=== PATIENT | male | born 1940 | race Caucasian/White ===

== ENCOUNTER 2016-05-30 05:50 | Inpatient (IN) | payer MEDICARE ==
[~2016-05-30] VITALS: Ht 177.8 cm; Wt 102.1 kg
[~2016-05-30 05:50] MED LIST: ALBU90AE INH; ASPI-621 PO; ATOR40TA78 PO; DONE10TA7 PO; DOXA8TAB63 PO; IRBE150T25 PO; ISOS60TA36 PO; LOVA40TA2 PO; MELO-184 PO; METF500T4 PO; MONT10TA9 PO; NEBI5TAB2 PO; PANT40TA5 PO; POTA20TA14 PO; TICA90TA PO; TIOT4MIS5 INH
[2016-05-30] MEDS ORDERED: GABA300C10 PO (06:28)
[2016-05-30] MEDS ORDERED: MELO-184 PO (06:28)
[2016-05-30] MEDS ORDERED: PRAS10TA4 PO (06:28)
[2016-05-30 07:20] LABS: ASPARTATE AMINO TRANSFERASE 15 U/L (15-37); BLOOD UREA NITROGEN 22 mg/dL (7-18)
[2016-05-30 07:26] LABS: IS PT STATUS REG ER OR PRE ER? YES
[2016-05-30] MEDS ORDERED: FUROSEMIDE 20 MG/2 ML ONE (08:08)
[2016-05-30] MEDS ORDERED: HEPARIN 5,000 UNITS/ML, 1ML IV ONE (08:30)
[2016-05-30] MEDS ORDERED: HEPARIN 5,000 UNITS/ML, 1ML IV PRN ×2 (08:30→20:00)
[2016-05-30] MEDS ORDERED: ASPIRIN 81 MG TABLET CHEW PO ONE (08:30)
[2016-05-30] MEDS ORDERED: IRBESARTAN 150 MG TABLET PO SCH (09:30)
[2016-05-30] MEDS ORDERED: ONDANSETRON ODT 4 MG PO PRN (09:30)
[2016-05-30] MEDS ORDERED: MORPHINE SULFATE 4 MG/ML, 1ML IVPush PRN (09:30)
[2016-05-30] MEDS ORDERED: BISACODYL 10 MG SUPP PR PRN (09:30)
[2016-05-30] MEDS ORDERED: ONDANSETRON 2MG/ML, 2ML IVP PRN (09:30)
[2016-05-30] MEDS ORDERED: POLYETHYLENE GLYCOL 17 GM PACKET PO PRN (09:30)
[2016-05-30] MEDS ORDERED: NEBIVOLOL HCL 5 MG TABLET PO SCH (09:30)
[2016-05-30] MEDS ORDERED: DOCUSATE 100 MG CAPSULE PO PRN (09:30)
[2016-05-30 09:40] VITALS: BP 190/85
[2016-05-30] MEDS: HEPARIN 25,000 UNITS/500ML PMX 500 ML IV PRN (09:40)
[2016-05-30] MEDS: PRASUGREL 10 MG TABLET PO SCH (10:17)
[2016-05-30] MEDS: ENALAPRILAT 1.25 MG/ML, 2ML IVPush PRN (10:18)
[2016-05-30] MEDS: ISOSORBIDE MONONITRATE ER 60 MG TABLET PO SCH (10:18)
[2016-05-30] MEDS: INSULIN REGULAR 100 UNITS/ML, 3ML VIAL SQ-INSULIN SCH ×3 (11:00→21:00)
[2016-05-30] MEDS ORDERED: TIOT18CA INH (12:07)
[2016-05-30] MEDS ORDERED: GABA100C8 PO (12:07)
[2016-05-30] MEDS ORDERED: ALBU18HF INH (12:08)
[2016-05-30] MEDS ORDERED: ALBUTEROL/IPRATROPIUM 2.5MG/0.5MG, 3 ML NPPB PRN (12:30)
[2016-05-30] MEDS ORDERED: PHARMACY INSTRUCTION MC PRN (12:30)
[2016-05-30] MEDS ORDERED: IRBESARTAN 150 MG TABLET PO ONE (12:30)
[2016-05-30] MEDS ORDERED: IPRATROPIUM 0.5 MG/2.5 ML INHA NPPB SCH (13:00)
[2016-05-30 13:25] LABS: IS PT STATUS REG ER OR PRE ER? NO
[2016-05-30 14:33] VITALS: BP 174/74
[2016-05-30] MEDS ORDERED: ACETAMINOPHEN 325 MG TABLET ONE (14:45)
[2016-05-30] MEDS ORDERED: ACETAMINOPHEN 325 MG TABLET PO PRN (15:00)
[2016-05-30 19:00] LABS: IS PT STATUS REG ER OR PRE ER? NO
[2016-05-30 20:34] VITALS: BP 167/72
[2016-05-30] MEDS: IPRATROPIUM 0.5 MG/2.5 ML INHA NPPB SCH (21:00)
[2016-05-30] MEDS: ATORVASTATIN 40 MG TABLET PO SCH (21:39)
[2016-05-30] MEDS: POTASSIUM CHLORIDE 20 MEQ TAB.ER.PRT PO SCH (21:39)
[2016-05-30] MEDS: DONEPEZIL 10 MG TABLET PO SCH (21:39)
[2016-05-30] MEDS: MONTELUKAST 10 MG TABLET PO SCH (21:39)
[2016-05-30] MEDS: SODIUM CHLORIDE FLUSH 10ML SYR IVF SCH (21:39)
[2016-05-31] VITALS (7 sets, daily range): BP systolic 158–183; BP diastolic 68–84
[2016-05-31 05:46] LABS: BLOOD UREA NITROGEN 16 mg/dL (7-18)
[2016-05-31] MEDS: ENALAPRILAT 1.25 MG/ML, 2ML IVPush PRN (06:08)
[2016-05-31] MEDS ORDERED: LABETALOL 5MG/ML, 20ML IVPush SCH (07:00)
[2016-05-31] MEDS: INSULIN REGULAR 100 UNITS/ML, 3ML VIAL SQ-INSULIN SCH ×4 (07:00→21:00)
[2016-05-31] MEDS: HEPARIN 25,000 UNITS/500ML PMX 500 ML IV PRN (07:11)
[2016-05-31] MEDS: IRBESARTAN 150 MG TABLET PO SCH (07:58)
[2016-05-31] MEDS: PRASUGREL 10 MG TABLET PO SCH (07:59)
[2016-05-31] MEDS: PANTOPROZOLE 40MG TABLET PO SCH (07:59)
[2016-05-31] MEDS: POTASSIUM CHLORIDE 20 MEQ TAB.ER.PRT PO SCH ×2 (07:59→20:59)
[2016-05-31] MEDS: DOXAZOSIN 2MG TABLET PO SCH (07:59)
[2016-05-31] MEDS: GABAPENTIN 300 MG CAPSULE PO SCH (07:59)
[2016-05-31] MEDS: ISOSORBIDE MONONITRATE ER 60 MG TABLET PO SCH (07:59)
[2016-05-31] MEDS: NEBIVOLOL HCL 5 MG TABLET PO SCH (08:00)
[2016-05-31] MEDS: SODIUM CHLORIDE FLUSH 10ML SYR IVF SCH ×2 (08:00→20:59)
[2016-05-31] MEDS: IPRATROPIUM 0.5 MG/2.5 ML INHA NPPB SCH ×2 (08:20→20:02)
[2016-05-31] MEDS ORDERED: AMLODIPINE 5 MG TABLET PO SCH (09:00)
[2016-05-31] MEDS ORDERED: MELOXICAM 15 MG TABLET PO SCH (09:00)
[2016-05-31] MEDS: SODIUM CHLORIDE 0.9% 1,000 ML IV SCH ×2 (09:10→15:14)
[2016-05-31] MEDS: LABETALOL 20 MG/4 ML IVPush SCH ×2 (11:00→16:00)
[2016-05-31] MEDS ORDERED: BIVALIRUDIN 250 MG ONE (14:16)
[2016-05-31] MEDS ORDERED: MIDAZOLAM 1 MG/ML, 5ML ONE (14:16)
[2016-05-31] MEDS ORDERED: FENTANYL PF 100 MCG/2ML ONE (14:16)
[2016-05-31] MEDS ORDERED: VERAPAMIL 2.5 MG/ML, 2ML ONE (14:16)
[2016-05-31] MEDS ORDERED: HEPARIN 1,000 UNITS/ML, 10ML ONE (14:17)
[2016-05-31] MEDS ORDERED: LIDOCAINE 2%, 20ML ONE (14:17)
[2016-05-31] MEDS ORDERED: LABETALOL 20 MG/4 ML IVPush PRN (19:00)
[2016-05-31] MEDS: DONEPEZIL 10 MG TABLET PO SCH (20:59)
[2016-05-31] MEDS: MONTELUKAST 10 MG TABLET PO SCH (20:59)
[2016-05-31] MEDS: ATORVASTATIN 40 MG TABLET PO SCH (20:59)
[2016-06-01 02:37] VITALS: BP 163/78
[2016-06-01 05:45] LABS: BLOOD UREA NITROGEN 14 mg/dL (7-18)
[2016-06-01] MEDS: INSULIN REGULAR 100 UNITS/ML, 3ML VIAL SQ-INSULIN SCH (07:00)
[2016-06-01] MEDS ORDERED: MAGNESIUM SULFATE PMX 2GM/50ML 50 ML IV ONE (08:00)
[2016-06-01 08:03] VITALS: BP 175/78
[2016-06-01] MEDS: IRBESARTAN 150 MG TABLET PO SCH (08:38)
[2016-06-01] MEDS: DOXAZOSIN 2MG TABLET PO SCH (08:38)
[2016-06-01] MEDS: NEBIVOLOL HCL 5 MG TABLET PO SCH (08:38)
[2016-06-01] MEDS: POTASSIUM CHLORIDE 20 MEQ TAB.ER.PRT PO SCH (08:39)
[2016-06-01] MEDS: PRASUGREL 10 MG TABLET PO SCH (08:39)
[2016-06-01] MEDS: GABAPENTIN 300 MG CAPSULE PO SCH (08:39)
[2016-06-01] MEDS: ISOSORBIDE MONONITRATE ER 60 MG TABLET PO SCH (08:39)
[2016-06-01] MEDS: PANTOPROZOLE 40MG TABLET PO SCH (08:40)
[2016-06-01] MEDS ORDERED: AMLODIPINE 5 MG TABLET PO SCH (09:00)
[2016-06-01] MEDS: SODIUM CHLORIDE FLUSH 10ML SYR IVF SCH (09:00)
[2016-06-01] MEDS: IPRATROPIUM 0.5 MG/2.5 ML INHA NPPB SCH (09:15)
[2016-06-01] MEDS ORDERED: NEBI5TAB2 PO (12:36)
[2016-06-01 14:20] VITALS: BP 149/68
[2016-06-02] MEDS ORDERED: NEBIVOLOL HCL 5 MG TABLET PO SCH (09:00)
== END 2016-06-01 16:20 | disposition home or self-care (01) | DRG 286 ==
LOC: ED 07:55 → EDIP 07:57 → ED 08:18 → 5SO 08:39 → DCLOUNGE 06-01 15:56
PROVIDERS: ADMIT Hospitalist; ATTEND Hospitalist
PROC: 4A023N7 Measurement of Cardiac Sampling and Pressure, Left Heart, Percutaneous Approach (ICD-10-PCS; principal; 2016-05-31)
PROC: B2111ZZ Fluoroscopy of Multiple Coronary Arteries using Low Osmolar Contrast (ICD-10-PCS; 2016-05-31)
PROC: B2151ZZ Fluoroscopy of Left Heart using Low Osmolar Contrast (ICD-10-PCS; 2016-05-31)
DX: I25.110 Atherosclerotic heart disease of native coronary artery with unstable angina pectoris (principal); I50.33 Acute on chronic diastolic (congestive) heart failure; I13.0 Hypertensive heart and chronic kidney disease with heart failure and stage 1 through stage 4 chronic kidney disease, or unspecified chronic kidney disease; J98.11 Atelectasis; E78.5 Hyperlipidemia, unspecified; N18.2 Chronic kidney disease, stage 2 (mild); E11.65 Type 2 diabetes mellitus with hyperglycemia; I73.9 Peripheral vascular disease, unspecified; J44.9 Chronic obstructive pulmonary disease, unspecified; J45.909 Unspecified asthma, uncomplicated; D64.9 Anemia, unspecified; F03.90 Unspecified dementia, unspecified severity, without behavioral disturbance, psychotic disturbance, mood disturbance, and anxiety; E11.22 Type 2 diabetes mellitus with diabetic chronic kidney disease; E66.9 Obesity, unspecified; N40.0 Benign prostatic hyperplasia without lower urinary tract symptoms; Z90.49 Acquired absence of other specified parts of digestive tract; Z82.49 Family history of ischemic heart disease and other diseases of the circulatory system; Z87.891 Personal history of nicotine dependence; Z95.5 Presence of coronary angioplasty implant and graft; Z80.8 Family history of malignant neoplasm of other organs or systems; Z68.32 Body mass index [BMI] 32.0-32.9, adult
CPT/HCPCS: 36415; 71010; 80048; 80053; 82962; 83735; 83880; 84484; 85025; 85520; 93005; 93306; 93458; 94640; C1760; C1894; J0583; J1644; J2250; J3010; J3490; J7620; J7644; J3475; J7030; Q9967

== ENCOUNTER → 2017-01-19 | Outpatient (CLI) | payer MEDICARE ==
[~2017-01-19] MED LIST changes: +ALBU18HF INH; +AMINOPHYLLINE 25 MG/ML, 10ML ONE; +GABA-826 PO; +GABA300C10 PO; -MELO-184 PO; +MELO15TA24 PO; +PRAS10TA4 PO; +REGADENOSON 0.4 MG/5 ML SYRINGE ONE; +TIOT18CA INH
== END | disposition home or self-care (01) ==
LOC: CFH 08:19
PROVIDERS: ATTEND Internal Medicine Cardiovascular Disease
DX: I25.10 Atherosclerotic heart disease of native coronary artery without angina pectoris (principal); Z95.5 Presence of coronary angioplasty implant and graft; E11.9 Type 2 diabetes mellitus without complications
CPT/HCPCS: 78452; 93017; A9502; J0280; J2785

== ENCOUNTER → 2017-02-08 | Outpatient (CLI) | payer MEDICARE ==
[~2017-02-08] MED LIST changes: -AMINOPHYLLINE 25 MG/ML, 10ML ONE; -REGADENOSON 0.4 MG/5 ML SYRINGE ONE
== END | disposition home or self-care (01) ==
LOC: CFH 09:01
PROVIDERS: ATTEND Internal Medicine Cardiovascular Disease
DX: K21.9 Gastro-esophageal reflux disease without esophagitis (principal); K22.8 Other specified diseases of esophagus
CPT/HCPCS: 74220

== ENCOUNTER → 2017-08-19 | Outpatient (CLI) | payer MEDICARE ==
[~2017-08-19] MED LIST changes: -METF500T4 PO; +METF500T5 PO
== END ==
LOC: CFH 07:49
PROVIDERS: ATTEND Nurse Practitioner Family
DX: G31.9 Degenerative disease of nervous system, unspecified (principal)
CPT/HCPCS: 70551

== ENCOUNTER 2018-03-28 07:25 | Outpatient (CLI) | payer MEDICARE ==
[~2018-03-28 07:25] MED LIST changes: -ASPI-621 PO; +ASPI81TA45 PO; +METF500T17 PO; -METF500T5 PO; -NEBI5TAB2 PO; +NEBI5TAB3 PO; +REGADENOSON 0.4 MG/5 ML SYRINGE ONE
[2018-04-02] MEDS ORDERED: HYDR-3343 PO (09:35)
== END 2018-03-28 23:59 | disposition home or self-care (01) ==
LOC: CFH 07:25
PROVIDERS: ATTEND Internal Medicine Cardiovascular Disease
DX: I44.7 Left bundle-branch block, unspecified (principal); I20.9 Angina pectoris, unspecified; I25.89 Other forms of chronic ischemic heart disease
CPT/HCPCS: 78452; 93017; A9502; J2785

== ENCOUNTER 2018-03-30 15:43 | Emergency (ER) | payer MEDICARE ==
[~2018-03-30 15:43] MED LIST changes: -REGADENOSON 0.4 MG/5 ML SYRINGE ONE
[2018-03-30] MEDS ORDERED: SERT25TA PO (17:05)
[2018-03-30] MEDS ORDERED: NEBI10TA3 PO (17:05)
[2018-03-30] MEDS ORDERED: GABA300C10 PO (17:05)
[2018-03-30] MEDS ORDERED: CLOP75TA52 PO (17:05)
[2018-03-30] MEDS ORDERED: ASPI81TA45 PO (17:53)
[2018-04-02] MEDS ORDERED: HYDR-3343 PO (09:35)
== END 2018-03-30 16:39 | disposition home or self-care (01) ==
LOC: ED 15:43
DX: R42 Dizziness and giddiness (principal)
CPT/HCPCS: 93005; 99283

== ENCOUNTER 2018-10-11 15:40 | Outpatient (CLI) | payer MEDICARE | END 2018-10-11 23:59 | disposition home or self-care (01) | LOC: CVU 15:40 | PROVIDERS: ATTEND Internal Medicine Cardiovascular Disease | DX: I65.23 Occlusion and stenosis of bilateral carotid arteries (principal) | CPT/HCPCS: 93880 ==